=== PATIENT | female | born 1935 | race Caucasian/White ===

== ENCOUNTER 2017-05-07 18:38 | Inpatient (IN) | payer MEDICAID ==
[2017-05-07 19:53] LABS: ABS Basophils 0 10^3/ul (0-0.2); ABS Eosinophils 0 10^3/ul (0-0.6); ABS Lymphocytes 0.8 10^3/ul (1.0-4.8); ABS Monocytes 0.5 10^3/ul (0-0.8); ABS Neutrophils 5.7 10^3/ul (1.5-7.7); ABS Nucleated RBC 0 10^3/ul; Eosinophil % 0.7 % (0-6); Hematocrit 42 % (35-47); Lymphocyte % 11.5 % (25-47); Mean Corpuscular HGB Conc 33 g/dl (31-36); Mean Corpuscular Hemoglobin 29 pg (27-31); Mean Corpuscular Volume 89 fL (80-97); Mean Platelet Volume 8.5 um3 (7.4-10.4); Nucleated Red Blood Cells % 0.1; Platelet Count 158 10^3/ul (150-450); Red Blood Count 4.78 10^6/ul (4.0-5.4); Red Cell Distribution Width 14 % (10.5-15)
[2017-05-07 20:01] LABS: INR 0.91 (0.77-1.02)
[2017-05-07 20:08] LABS: EGFR Non-African American 53.1 (>60)
[2017-05-07] MEDS ORDERED: Iodixanol* (CONTRAST) 320 MG/ML 100 ML SDV IV ONE (20:11)
--- NOTE | 2017-05-07 20:19 | RAD ---
INDICATION: Abdominal pain COMPARISON: Chest x-ray dated December 24, 2016 TECHNIQUE: Single AP portable view of the chest was obtained. FINDINGS: Image quality is compromised due to the relative inferiority of a portable chest x-ray. The heart and mediastinum exhibit normal size and contour. There is mild calcification overlying the arch of the aorta. The lungs are grossly clear. There is no evidence of a large pleural effusion. Degenerative changes of the right shoulder include sclerotic flattening of the humeral head similar to the previous chest x-ray. IMPRESSION: No radiographic evidence for acute cardiopulmonary abnormality on this portable chest x-ray.
--- NOTE | 2017-05-07 20:34 | RAD ---
HISTORY: Abdominal pain COMPARISONS: None TECHNIQUE: Multiple transverse and longitudinal ultrasound images were obtained of the right upper quadrant. FINDINGS: LIVER: The liver is normal in dimensions and echogenicity. Normal hepatic and portal venous blood flow is duplicated with color flow imaging. There is no gross intrahepatic biliary duct dilatation. GALLBLADDER AND EXTRAHEPATIC BILIARY DUCT: The gallbladder wall appears asymmetrically thickened measuring up to 11 mm and greatest width. There are echogenic stones in the gallbladder lumen. The common bile duct measures a maximum diameter of up to 5 mm. PANCREAS: The portions of the pancreas not obscured by bowel gas are normal in appearance. RIGHT KIDNEY: The right kidney appears atrophic with thin cortex measuring 6.9 x 3.2 x 3.3 cm. AORTA AND IVC: The visualized portions are normal in appearance and not pathologically dilated. IMPRESSION: 1. CHOLELITHIASIS AND GALLBLADDER WALL THICKENING UP TO 11 MM COULD BE SEEN IN THE SETTING OF CHOLECYSTITIS. IF CLINICALLY WARRANTED FURTHER PHYSIOLOGIC CHARACTERIZATION OF THE GALLBLADDER CAN BE MADE WITH HIDA SCAN. 2. THE RIGHT KIDNEY APPEARS ATROPHIC. PLEASE CORRELATE TO BASIC METABOLIC PANEL.
[2017-05-07 20:42] LABS: Urine Appearance Clear; Urine Blood 1+ (Negative); Urine Color Straw; Urine Ketones Negative (Negative); Urine Protein Negative (Negative); Urine Specific Gravity 1.004 (1.010-1.030); Urine Urobilinogen Negative (Negative)
[2017-05-07] MEDS ORDERED: Piperacillin/Tazobac ADVAN(*) 3.375 GM in NS 0.9% 100 ML* 100 ML IVPB ONE ×2 (21:14→22:29)
--- NOTE | 2017-05-07 22:04 | RAD ---
CLINICAL HISTORY: Abdominal pain COMPARISON: Same day ultrasound at shows sonographic signs of acute cholecystitis in the presence of gallstones. TECHNIQUE: Contrast enhanced CT examination of the abdomen and pelvis from the lung bases through the initial tuberosities. The patient received 71 mL Visipaque 320 intravenously prior to imaging.The patient received oral contrast as well prior to imaging. FINDINGS: VISUALIZED LUNG BASES: There are mild hypoventilatory changes and groundglass opacification at the bilateral lung bases. ABDOMEN AND PELVIS: The liver, spleen, pancreas and adrenal glands are grossly normal in appearance. There are gallstones in the dependent portion of the gallbladder. There is circumferential thickening of the gallbladder wall measuring up to 7 mm in thickness. There is no definite pericholecystic fluid. The kidneys are normal in appearance without focal mass, calcification or signs of hydronephrosis. Evaluation of the gastrointestinal tract is limited without oral contrast. The small and large bowel are not distended. The appendix is not discretely visualized. There are rectosigmoid diverticula. There is no definite wall thickening, although evaluation of the colon is limited in the absence of oral contrast the lumen. There is no gross retroperitoneal or mesenteric lymphadenopathy. At the right pelvic adnexa there is a large fluid density structure measuring 6.7 cm in greatest axial dimension. The coarsely calcified abdominal aorta and iliac arteries are normal in course and diameter. There is an age indeterminant compression deformity of the T12 vertebral body. Degenerative changes include loss of intervertebral disc height.There are no sinister bone lesions. IMPRESSION: 1. Corresponding to findings on the same day right upper quadrant ultrasound, there are gallstones and thickening of the gallbladder wall to 7 mm in thickness. Please correlate to physical exam findings consistent with acute cholecystitis. 2. Diverticulosis without definite focal inflammatory change. 3. At the right adnexa there is a 6.6 cm fluid density structure that could be either a large ovarian or paraovarian cyst. This is considered abnormal and a postmenopausal woman. Further characterization can be made with pelvic ultrasound on a nonemergent basis. 4. Age indeterminant compression fracture of the T12 vertebral body 5. Additional chronic and degenerative changes described in the body the report.
--- NOTE | 2017-05-07 22:21 | ED ---
Abhishek Lal Julia, scribed for Tiago Panda on 05/07/17 at 1854 . Abdominal Pain/Female - HPI Summary HPI Summary: This patient is a 81 year old F presenting to [facility] accompanied by her daughter acting as solar field service technician with a chief complaint of left sided abdominal pain since around 09:00. Daughter states she has been c/o discomfort recently but no significant pain. Daughter denies recent vomiting. Daughter states she is unaware of eating and bowel habits because of dementia. - History of Current Complaint Chief Complaint: EDAbdPain Stated Complaint: ABD PAIN Time Seen by Provider: 05/07/17 18:43 Hx Obtained From: Patient, Family/Car Electronics Installer, Figure Model Hx From Patient Unobtainable Due To: Dementia Onset/Duration: Lasting Hours Timing: Constant Pain Intensity: 5 Location: Discrete At: LUQ, Discrete At: LLQ Associated Signs and Symptoms: Positive: Other: - unaware due to dementia. Negative: Vomiting Allergies/Adverse Reactions: Allergies Allergy/AdvReac Type Severity Reaction Status Date / Time No Known Allergies Allergy Verified 09/21/15 13:39 Home Medications: Home Medications NK [No Home Medications Reported] 05/07/17 [History Confirmed 05/07/17] PMH/Surg Hx/FS Hx/Imm Hx Endocrine/Hematology History: Denies: Hx Diabetes, Hx Thyroid Disease Cardiovascular History: Denies: Hx Congestive Heart Failure, Hx Deep Vein Thrombosis, Hx Hypertension , Hx Myocardial Infarction, Hx Pacemaker/ICD Respiratory History: Denies: Hx Asthma, Hx Chronic Obstructive Pulmonary Disease (COPD), Hx Lung Cancer, Hx Pneumonia, Hx Pulmonary Embolism GI History: Denies: Hx Gall Bladder Disease, Hx Gastrointestinal Bleed, Hx Ulcer, Hx Urosepsis History: Denies: Hx Kidney Stones, Hx Renal Disease Musculoskeletal History: Reports: Hx Back Problems Sensory History: Denies: Hx Hearing Aid Neurological History: Reports: Hx Dementia Denies: Hx Migraine, Hx Seizures, Hx Transient Ischemic Attacks (TIA) Psychiatric History: Denies: Hx Anxiety, Hx Depression, Hx Panic Disorder, Hx Schizophrenia, Hx Bipolar Disorder - Surgical History Surgery Procedure, Year, and Place: SOFT TISSUE MASS REMOVED FROM HEEL - Immunization History Immunizations Up to Date: Unable to Obtain/Confirm Infectious Disease History: No Infectious Disease History: Denies: Traveled Outside the [place] in Last 30 Days - Family History Known Family History: Positive: Unknown - Pt has dementia - Social History Alcohol Use: None Substance Use Type: Reports: None Smoking Status (MU): Never Smoked Tobacco Review of Systems Positive: Abdominal Pain. Negative: Vomiting All Other Systems Reviewed And Are Negative: Yes - Comments Additional Review of Systems Comments: ROS is limited due to dementia. Physical Exam - Summary Physical Exam Summary: Appearance: Well appearing, no pain distress Skin: warm, dry, reflects adequate perfusion, DMM Head/face: normal Eyes: EOMI, ROLY ENT: normal Neck: supple, non-tender Respiratory: CTA, breath sounds present Cardiovascular: RRR, pulses symmetrical Abdomen: RUQ tenderness, soft Bowel: present Musculoskeletal: normal, strength/ROM intact Neuro: normal, sensory motor intact, alert but confused Triage Information Reviewed: Yes Vital Signs On Initial Exam: Initial Vitals Temp Pulse Resp BP Pulse Ox 98.1 F 62 18 139/80 93 05/07/17 18:41 05/07/17 18:41 05/07/17 18:41 05/07/17 18:41 05/07/17 18:41 Vital Signs Reviewed: Yes Diagnostics - Vital Signs Vital Signs Temp Pulse Resp BP Pulse Ox 05/07/17 18:41 98.1 F 62 18 139/80 93 - Laboratory Lab Results: Lab Results 05/07/17 05/07/17 05/07/17 Range/Units 19:30 19:30 19:30 WBC 7.0 (3.5-10.8) 10^3/ul RBC 4.78 (4.0-5.4) 10^6/ul Hgb 14.0 (12.0-16.0) g/dl Hct 42 (35-47) % MCV 89 (80-97) fL MCH 29 (27-31) pg MCHC 33 (31-36) g/dl RDW 14 (10.5-15) % Plt Count 158 (150-450) 10^3/ul MPV 8.5 (7.4-10.4) um3 Neut % (Auto) 80.1 (38-83) % Lymph % (Auto) 11.5 L (25-47) % [place] % (Auto) 7.3 H (0-7) % Eos % (Auto) 0.7 (0-6) % Baso % (Auto) 0.4 (0-2) % Absolute Neuts (auto) 5.7 (1.5-7.7) 10^3/ul Absolute Lymphs (auto) 0.8 L (1.0-4.8) 10^3/ul Absolute Monos (auto) 0.5 (0-0.8) 10^3/ul Absolute Eos (auto) 0 (0-0.6) 10^3/ul Absolute Basos (auto) 0 (0-0.2) 10^3/ul Absolute Nucleated RBC 0 10^3/ul Nucleated RBC % 0.1 INR (Anticoag Therapy) 0.91 (0.77-1.02) APTT 28.2 (26.0-36.3) seconds Sodium 140 (139-145) mmol/L Potassium 3.9 (3.5-5.0) mmol/L Chloride 104 (101-111) mmol/L Carbon Dioxide 27 (22-32) mmol/L Anion Gap 9 (2-11) mmol/L BUN 15 (6-24) mg/dL Creatinine 1.00 H (0.51-0.95) mg/dL Est GFR ( Amer) 68.3 (>60) Est GFR (Non-Af Amer) 53.1 (>60) BUN/Creatinine Ratio 15.0 (8-20) Glucose 125 H (70-100) mg/dL Lactic Acid (0.5-2.0) mmol/L Calcium 9.7 (8.6-10.3) mg/dL Total Bilirubin 0.80 (0.2-1.0) mg/dL AST 178 H (13-39) U/L ALT 46 (7-52) U/L Alkaline Phosphatase 77 (34-104) U/L Troponin I 0.01 (<0.04) ng/mL C-Reactive Protein < 1.00 (< 5.00) mg/L Total Protein 6.8 (6.4-8.9) g/dL Albumin 4.0 (3.2-5.2) g/dL Globulin 2.8 (2-4) g/dL Albumin/Globulin Ratio 1.4 (1-3) Lipase 639 H (11.0-82.0) U/L Urine Color Urine Appearance Urine pH (5-9) Ur Specific [place] (1.010-1.030) Urine Protein (Negative) Urine Ketones (Negative) Urine Blood (Negative) Urine Nitrate (Negative) Urine Bilirubin (Negative) Urine Urobilinogen (Negative) Ur Leukocyte Esterase (Negative) Urine WBC (Auto) (Absent) Urine RBC (Auto) (Absent) Ur Squamous Epith Cells (Absent) Amorphous Crystals (Absent) Urine Bacteria (Absent) Urine Glucose (Negative) 05/07/17 05/07/17 Range/Units 19:30 19:40 WBC (3.5-10.8) 10^3/ul RBC (4.0-5.4) 10^6/ul Hgb (12.0-16.0) g/dl Hct (35-47) % MCV (80-97) fL MCH (27-31) pg MCHC (31-36) g/dl RDW (10.5-15) % Plt Count (150-450) 10^3/ul MPV (7.4-10.4) um3 Neut % (Auto) (38-83) % Lymph % (Auto) (25-47) % [place] % (Auto) (0-7) % Eos % (Auto) (0-6) % Baso % (Auto) (0-2) % Absolute Neuts (auto) (1.5-7.7) 10^3/ul Absolute Lymphs (auto) (1.0-4.8) 10^3/ul Absolute Monos (auto) (0-0.8) 10^3/ul Absolute Eos (auto) (0-0.6) 10^3/ul Absolute Basos (auto) (0-0.2) 10^3/ul Absolute Nucleated RBC 10^3/ul Nucleated RBC % INR (Anticoag Therapy) (0.77-1.02) APTT (26.0-36.3) seconds Sodium (139-145) mmol/L Potassium (3.5-5.0) mmol/L Chloride (101-111) mmol/L Carbon Dioxide (22-32) mmol/L Anion Gap (2-11) mmol/L BUN (6-24) mg/dL Creatinine (0.51-0.95) mg/dL Est GFR ( Amer) (>60) Est GFR (Non-Af Amer) (>60) BUN/Creatinine Ratio (8-20) Glucose (70-100) mg/dL Lactic Acid 1.8 (0.5-2.0) mmol/L Calcium (8.6-10.3) mg/dL Total Bilirubin (0.2-1.0) mg/dL AST (13-39) U/L ALT (7-52) U/L Alkaline Phosphatase (34-104) U/L Troponin I (<0.04) ng/mL C-Reactive Protein (< 5.00) mg/L Total Protein (6.4-8.9) g/dL Albumin (3.2-5.2) g/dL Globulin (2-4) g/dL Albumin/Globulin Ratio (1-3) Lipase (11.0-82.0) U/L Urine Color Straw Urine Appearance Clear Urine pH 6.0 (5-9) Ur Specific [place] 1.004 L (1.010-1.030) Urine Protein Negative (Negative) Urine Ketones Negative (Negative) Urine Blood 1+ A (Negative) Urine Nitrate Negative (Negative) Urine Bilirubin Negative (Negative) Urine Urobilinogen Negative (Negative) Ur Leukocyte Esterase Negative (Negative) Urine WBC (Auto) Trace(0-5/hpf) (Absent) Urine RBC (Auto) 1+(3-5/hpf) A (Absent) Ur Squamous Epith Cells Present A (Absent) Amorphous Crystals Present A (Absent) Urine Bacteria Absent (Absent) Urine Glucose Negative (Negative) Result Diagrams: 05/07/17 19:30 05/07/17 19:30 Lab Statement: Any lab studies that have been ordered have been reviewed, and results considered in the medical decision making process. - Radiology CXR Radiology Interpretation Completed By: Radiologist - No radiographic evidence for acute cardiopulmonary abnormality on this portable chest x-ray. ED Physician as reviewed this report. - CT A/P CT Interpretation Completed By: Radiologist - 1. Corresponding to findings on the same day right upper quadrant ultrasound, there are gallstones and thickening of the gallbladder wall to 7 mm in thickness. Please correlate to physical exam findings consistent with acute cholecystitis. 2. Diverticulosis without definite focal inflammatory change. 3. At the right adnexa there is a 6.6 cm fluid density structure that could be either a large ovarian or paraovarian cyst. This is considered abnormal and a postmenopausal woman. Further characterization can be made with pelvic ultrasound on a nonemergent basis. 4. Age indeterminant compression fracture of the T12 vertebral body 5. Additional chronic and degenerative changes described in the body the report. ED Physician has reviewed this report. - EKG 1913 Cardiac Rate: NL - at 61 EKG Rhythm: Sinus Rhythm ST Segment: Non-Specific - Additional Comments Diagnostic Additional Comments: A Gallbladder US reveals: 1. CHOLELITHIASIS AND GALLBLADDER WALL THICKENING UP TO 11 MM COULD BE SEEN IN THE SETTING OF CHOLECYSTITIS. IF CLINICALLY WARRANTED FURTHER PHYSIOLOGIC CHARACTERIZATION OF THE GALLBLADDER CAN BE MADE WITH HIDA SCAN. 2. THE RIGHT KIDNEY APPEARS ATROPHIC. PLEASE CORRELATE TO BASIC METABOLIC PANEL. ED Physician has reviewed this report. Re-Evaluation - Re-Evaluation 1 Re-Evaluation Time: 21:20 Comment: Informed pt of results. Pt will be admitted. Abdominal Pain Fem Course/Dx - Course Course Of Treatment: Patient presents with left sided abdominal pain since around 09:00. Daughter states she has been c/o discomfort recently but no significant pain. Daughter denies recent vomiting. Daughter states she is unaware of eating and bowel habits because of dementia. Bloodwork is WNL. Dr. Ball agrees to admit this patient. A A/P CT is obtained, Dr. Ball will review results with pt as report was given at the end of shit/post admission. Dr. Richardson suspects cholecsytitis. - Diagnoses Differential Diagnosis: Positive: Appendicitis, Diverticulitis, Gall Bladder Disease, Pancreatitis, Peptic Ulcer Disease, Renal Colic, Urinary Tract Infection Provider Diagnoses: Cholecystitis, Pancreatitis - Provider Notifications Discussed Care Of Patient With: Humza Richardson - surgeon Time Discussed With Above Provider: 21:10 Instructed by Provider To: Other - Pt likely has cholecystitis. - Critical Care Time Critical Care Time: 30-74 min Discharge - Sign-Out/Discharge Documenting (check all that apply): Discharge - admit - Discharge Plan Condition: Stable Disposition: ADMITTED TO [facility] Referrals: Serafin Katz MD [Primary Care Provider] - - Billing Disposition and Condition Condition: STABLE Disposition: [facility] Consult Consult: At 21:10, Dr. Richardson states he believes the pt has cholecytitis. At 21:15, Dr Ball agrees to admit. The documentation as recorded by the Abhishek younger Julia accurately reflects the service I personally performed and the decisions made by , Tiago Panda.
[2017-05-07] MEDS ORDERED: Ondansetron INJ* 2 MG/ML VIAL IV PRN (22:29)
[2017-05-07] MEDS ORDERED: Acetaminophen TAB* 325 MG PO PRN (22:29)
[2017-05-07] MEDS ORDERED: NS 0.9% 1000 ML* 1,000 ML IV SCH (22:30)
[2017-05-07] MEDS ORDERED: Zosyn per Pharmacy* NOTE FOLLOW UP SCH (23:00)
[2017-05-08] MEDS: Piperacillin/Tazobactam 13.5 GM IV 24 hour continuous infusion IVPB SCH ×2 (02:02)
--- NOTE | 2017-05-08 02:27 | HP ---
CC: Dr. Katz; Dr. Richardson * HISTORY AND PHYSICAL: DATE OF ADMISSION: 05/07/17 PRIMARY CARE PROVIDER: Dr. Katz. ATTENDING PHYSICIAN WHILE IN THE HOSPITAL: Dr. Josiah Ball * (report dictated by Bc Doss NP) CHIEF COMPLAINT: Abdominal pain. HISTORY OF PRESENT ILLNESS: Ms. Rodriguez is an 81-year-old female patient. She really has no past medical history though daughter thinks she may have a history of dementia. Please note the patient is [place] Citizen speaking only and the daughter acts as an livestock handler for me at this point. The patient's daughter says that she was having abdominal discomfort today particularly on the right side described as sudden, sharp onset with association with food. She says that for the last several months, the patient has been having intermittent left- sided pain and the daughter noted that the pain does some time coincide with her after eating food. She says that there have been no reported fevers or nausea or vomiting. There has been no reported chest pain or shortness of breath from the patient to the daughter. The patient described the pain today as a sharp, stabbing pain that just did not go away, was persistent. The daughter was concerned because this discomfort was on the right side and it was not like her previous episodes of pain that she was concerned and she brought her mother into the hospital. Again, there have been no reports of diarrhea. No reports of vomiting, no reports of nausea, and no reports of recent cold symptoms or shortness of breath. She came into the ED, it was noted that she did have some fluid around the gallbladder. Her lipase was elevated and because of this, we were asked for evaluate for admission. PAST MEDICAL HISTORY: Significant for questionable dementia. PAST SURGICAL HISTORY: The patient has had a foot surgery only. HOME MEDICATIONS: Denied. ALLERGIES: Include no known drug allergies. FAMILY HISTORY: Her father's history is unknown. The mother did have a history of cancer. SOCIAL HISTORY: The patient has never been a smoker or drinker. Surrogate decision maker is the patient's daughter. REVIEW OF SYSTEMS: There is no documented fever. There is no significant weight change. There was no double vision. There is no ear discharge. She is not having any rhinorrhea. There is no sore throat. No thyroid enlargement. She denied having any chest pain. There is no orthopnea, there is no nocturnal dyspnea. There was abdominal pain from my HPI. There was no nausea, no vomiting. No dysuria, no frequency. No seizure, no loss of consciousness. No pruritus and no skin ulcerations. Review of 14 systems was completed, all others negative. PHYSICAL EXAMINATION GENERAL: At this time, Ms. Rodriguez is an 81-year-old female patient. She is sitting on the ED stretcher. She does not appear to be in any acute distress. VITAL SIGNS: Blood pressure 139/48, pulse 70, respirations 18, O2 sat 93%, temperature of 98.1. HEENT: Head: Atraumatic, normocephalic. Eyes: EOMs intact. Sclerae anicteric. Throat: Oral mucosa appears to be moist. No oropharyngeal erythema. NECK: Supple. LUNGS: Clear to auscultation. No wheezes, rales, or rhonchi. HEART: Sounds S1, S2. Regular rate and rhythm. No murmurs, rubs, or gallops. ABDOMEN: Soft, flat, nontender. Bowel sounds present. EXTREMITIES: Pulses were 2+ throughout. She is moving all 4 extremities with 5 /5 strength. NEUROLOGICAL: She is awake and she is alert to her name. According to the daughter, she does know she is in the hospital. She is confused of the month. Speech was clear. Tongue was midline. There is no facial drooping. No gross focal deficits. SKIN: Intact. DIAGNOSTIC STUDIES/LAB DATA: WBC 7.0, RBC of 4.78, hemoglobin 14.3, hematocrit of 42, platelet count of 58. INR 0.91, PTT of 28.2. Sodium 140, potassium 3.9, chloride 104, bicarb 27, BUN 15, creatinine of 1, glucose is 125 , lactate 1.8, calcium 9.7. Total bili 0.8; AST was 178, a year ago, was 57; ALT was 46; alk phos 77. Troponin 0.01. CRP less than 1. Lipase was 639. Urine showed 1+ rbc's, 1+blood. She had multiple imaging in the ED. She had a chest x-ray which showed no radiographic evidence for acute cardiopulmonary abnormalities. There was an abdomen pelvis CT obtained today, which showed corresponding finding on the same day of right upper quadrant ultrasound. There are gallstones and thickening of the gallbladder to 7-mm thickness. Please correlate to physical exam consistent with acute cholecystitis, diverticulosis without definite inflammatory change. At the right ovary, there was a 6.6 fluid density structure that could either be a large ovarian cyst or paraovarian cyst. This was considered abnormal in a postmenopausal woman. Further characterization can be made with pelvic ultrasound. Age undetermined compression fracture at T12, additional chronic degenerative changes in the body of report. The patient did have a gallbladder ultrasound obtained today, which revealed cholelithiasis and gallbladder wall thickening up to 11 mm, could be seen in the setting of acute cholecystitis, clinically warranted. Further physiologic characteristic of the gallbladder can be made with the HIDA scan. Right kidney appears to be atrophic. Please correlate with basic metabolic panel. The patient did have an EKG today which did show normal sinus rhythm, rate of 66 , no ST elevation or T wave inversions were noted. Old medical records were reviewed. ASSESSMENT AND PLAN: Ms. Rodriguez is an 81-year-old female patient with a history of questionable dementia, coming into the ED today with complaints of abdominal discomfort, now resolved and on evaluation was found to have a mildly elevated lipase, elevated liver function tests, now CT imaging found to have gallbladder wall thickening along with cholelithiasis. We were asked to evaluate for admission. She will be admitted under observation status for: 1. Abdominal pain. I suspect this is biliary colic. The patient certainly could have had a stone that was obstructed and it is free. I do think that we should trend her labs, make the patient n.p.o. I would continue antibiotics because of the pericholecystic fluid. I did touch base with Surgery. We ordered a consult with Surgery. We ordered antibiotics. HIDA tomorrow morning. She will be n.p.o. with IV fluids going. In addition to this, we will check LFTs in the morning and her lipase. 2. Dementia. Continue with supportive care. 3. DVT prophylaxis. I will place the patient on heparin subcu. 4. Code status. Full code. 5. Fluids, electrolytes, nutrition. She will be n.p.o. with normal saline at 75 an hour. TIME SPENT: On admission was 60 minutes, greater than half the time was spent face- to-face with the patient obtaining my history and physical; other half time was spent going over the plan of care with the patient and implementing plan of care. I did discuss the plan of care with my attending, Dr. Ball; he is in agreement. BC DOSS NP [id number]/CPS #: [id number] LIZZIE
[2017-05-08] MEDS: Heparin VIAL(*) 5000 UNITS/ML VIAL (FIVE THOUSAND) SUBCUT SCH ×3 (05:22→21:47)
[2017-05-08 06:44] LABS: ABS Basophils 0 10^3/ul (0-0.2); ABS Eosinophils 0 10^3/ul (0-0.6); ABS Lymphocytes 0.8 10^3/ul (1.0-4.8); ABS Monocytes 0.3 10^3/ul (0-0.8); ABS Neutrophils 1.5 10^3/ul (1.5-7.7); ABS Nucleated RBC 0 10^3/ul; Eosinophil % 0.7 % (0-6); Hematocrit 40 % (35-47); Hemoglobin 13.2 g/dl (12.0-16.0); Lymphocyte % 29.1 % (25-47); Mean Corpuscular HGB Conc 33 g/dl (31-36); Mean Corpuscular Hemoglobin 29 pg (27-31); Mean Corpuscular Volume 88 fL (80-97); Mean Platelet Volume 8.3 um3 (7.4-10.4); Nucleated Red Blood Cells % 0.1; Platelet Count 153 10^3/ul (150-450); Red Blood Count 4.52 10^6/ul (4.0-5.4); Red Cell Distribution Width 14 % (10.5-15); White Blood Count 2.6 10^3/ul (3.5-10.8)
[2017-05-08 06:49] LABS: INR 0.96 (0.77-1.02)
[2017-05-08 06:58] LABS: EGFR Non-African American 48.6 (>60)
--- NOTE | 2017-05-08 10:31 | RAD ---
Indication: Abdominal pain, cholelithiasis. Pancreatitis. Comparison: May 07, 2017 CT and ultrasound. Technique: 6.300 mCi of Tc-99m Choletec was injected IV. Serial anterior images of the abdomen were obtained immediately following radiopharmaceutical administration to 60 minutes. Delayed anterior scintiphoto obtained at 80 minutes. Report: There is normal hepatic uptake and excretion of the radiopharmaceutical with the gallbladder being visualized at approximately 80 minutes following injection. Bowel activity visualized at approximately 25 minutes. IMPRESSION: Patent cystic and common bile ducts documented.
--- NOTE | 2017-05-08 15:13 | PN ---
Progress Note - Progress Note Date of Service: 05/08/17 Note: Surgery Ms. Rodriguez seen with her daughter who translates and does most of the communicating. She had a number of questions about the significance of a normal HIDA scan and elevation of lipase. She says Ms. Rodriguez wants to eat and go home. But the daughter recalls that the pt. has intermittently held her left side in pain after eating. She wonders if that indicates pancreatitis or other problem. Vital Signs 05/07/17 05/07/17 05/07/17 18:41 19:45 20:00 Temperature 98.1 F Pulse Rate 62 73 62 Respiratory 18 Rate Blood Pressure 139/80 139/65 107/64 (mmHg) O2 Sat by Pulse 93 96 96 Oximetry 05/07/17 05/07/17 05/07/17 21:00 21:21 21:28 Temperature Pulse Rate 68 72 Respiratory Rate Blood Pressure 144/59 (mmHg) O2 Sat by Pulse 95 94 Oximetry 05/07/17 05/07/17 05/07/17 21:30 21:43 22:00 Temperature Pulse Rate 67 70 Respiratory Rate Blood Pressure 155/64 139/48 (mmHg) O2 Sat by Pulse 96 93 Oximetry 05/07/17 05/07/17 05/08/17 23:32 23:36 00:02 Temperature 97.6 F 97.3 F Pulse Rate 80 78 70 Respiratory 18 16 Rate Blood Pressure 150/52 150/52 151/72 (mmHg) O2 Sat by Pulse 83 93 97 Oximetry 05/08/17 05/08/17 05/08/17 02:50 08:00 08:17 Temperature 100.6 F 98.6 F Pulse Rate 75 64 Respiratory 18 18 18 Rate Blood Pressure 140/56 94/55 (mmHg) O2 Sat by Pulse 95 Oximetry 05/08/17 12:43 Temperature Pulse Rate 62 Respiratory Rate Blood Pressure 125/48 (mmHg) O2 Sat by Pulse 94 Oximetry Abd: good BS, soft, non-tender, even in RUQ. Intake & Output 05/08/17 05/08/17 05/08/17 06:59 14:59 22:59 Intake Total 661 Balance 661 Weight 116 lb 6.4 oz Intake: IV Fluids 544 NS (0.9%) 544 IVPB 117 ABX - PIPERACILLIN 117 Oral 0 Other: # Bowel Movements 0 # Voids 2 Laboratory Results - last 24 hr 05/07/17 05/07/17 05/07/17 19:30 19:30 19:30 WBC 7.0 RBC 4.78 Hgb 14.0 Hct 42 MCV 89 MCH 29 MCHC 33 RDW 14 Plt Count 158 MPV 8.5 Neut % (Auto) 80.1 Lymph % (Auto) 11.5 L [place] % (Auto) 7.3 H Eos % (Auto) 0.7 Baso % (Auto) 0.4 Absolute Neuts (auto) 5.7 Absolute Lymphs (auto) 0.8 L Absolute Monos (auto) 0.5 Absolute Eos (auto) 0 Absolute Basos (auto) 0 Absolute Nucleated RBC 0 Nucleated RBC % 0.1 INR (Anticoag Therapy) 0.91 APTT 28.2 Sodium 140 Potassium 3.9 Chloride 104 Carbon Dioxide 27 Anion Gap 9 BUN 15 Creatinine 1.00 H Est GFR ( Amer) 68.3 Est GFR (Non-Af Amer) 53.1 BUN/Creatinine Ratio 15.0 Glucose 125 H Lactic Acid Calcium 9.7 Total Bilirubin 0.80 Direct Bilirubin Indirect Bilirubin AST 178 H ALT 46 Alkaline Phosphatase 77 Troponin I 0.01 C-Reactive Protein < 1.00 Total Protein 6.8 Albumin 4.0 Globulin 2.8 Albumin/Globulin Ratio 1.4 Lipase 639 H Urine Color Urine Appearance Urine pH Ur Specific [place] Urine Protein Urine Ketones Urine Blood Urine Nitrate Urine Bilirubin Urine Urobilinogen Ur Leukocyte Esterase Urine WBC (Auto) Urine RBC (Auto) Ur Squamous Epith Cells Amorphous Crystals Urine Bacteria Urine Glucose 05/07/17 05/07/17 05/08/17 19:30 19:40 01:00 WBC RBC Hgb Hct MCV MCH MCHC RDW Plt Count MPV Neut % (Auto) Lymph % (Auto) [place] % (Auto) Eos % (Auto) Baso % (Auto) Absolute Neuts (auto) Absolute Lymphs (auto) Absolute Monos (auto) Absolute Eos (auto) Absolute Basos (auto) Absolute Nucleated RBC Nucleated RBC % INR (Anticoag Therapy) APTT Sodium Potassium Chloride Carbon Dioxide Anion Gap BUN Creatinine Est GFR ( Amer) Est GFR (Non-Af Amer) BUN/Creatinine Ratio Glucose Lactic Acid 1.8 2.4 H* Calcium Total Bilirubin Direct Bilirubin Indirect Bilirubin AST ALT Alkaline Phosphatase Troponin I C-Reactive Protein Total Protein Albumin Globulin Albumin/Globulin Ratio Lipase Urine Color Straw Urine Appearance Clear Urine pH 6.0 Ur Specific [place] 1.004 L Urine Protein Negative Urine Ketones Negative Urine Blood 1+ A Urine Nitrate Negative Urine Bilirubin Negative Urine Urobilinogen Negative Ur Leukocyte Esterase Negative Urine WBC (Auto) Trace(0-5/hpf) Urine RBC (Auto) 1+(3-5/hpf) A Ur Squamous Epith Cells Present A Amorphous Crystals Present A Urine Bacteria Absent Urine Glucose Negative 05/08/17 05/08/17 05/08/17 06:30 06:30 06:30 WBC 2.6 L RBC 4.52 Hgb 13.2 Hct 40 MCV 88 MCH 29 MCHC 33 RDW 14 Plt Count 153 MPV 8.3 Neut % (Auto) 57.2 Lymph % (Auto) 29.1 [place] % (Auto) 12.0 H Eos % (Auto) 0.7 Baso % (Auto) 1.0 Absolute Neuts (auto) 1.5 Absolute Lymphs (auto) 0.8 L Absolute Monos (auto) 0.3 Absolute Eos (auto) 0 Absolute Basos (auto) 0 Absolute Nucleated RBC 0 Nucleated RBC % 0.1 INR (Anticoag Therapy) 0.96 APTT Sodium 142 Potassium 4.0 Chloride 108 Carbon Dioxide 24 Anion Gap 10 BUN 14 Creatinine 1.08 H Est GFR ( Amer) 62.5 Est GFR (Non-Af Amer) 48.6 BUN/Creatinine Ratio 13.0 Glucose 118 H Lactic Acid Calcium 8.9 Total Bilirubin 1.30 H Direct Bilirubin 0.40 H Indirect Bilirubin 0.9 AST 1241 H ALT 487 H Alkaline Phosphatase 108 H Troponin I C-Reactive Protein Total Protein 6.0 L Albumin 3.5 Globulin 2.5 Albumin/Globulin Ratio 1.4 Lipase 167 H Urine Color Urine Appearance Urine pH Ur Specific [place] Urine Protein Urine Ketones Urine Blood Urine Nitrate Urine Bilirubin Urine Urobilinogen Ur Leukocyte Esterase Urine WBC (Auto) Urine RBC (Auto) Ur Squamous Epith Cells Amorphous Crystals Urine Bacteria Urine Glucose 05/08/17 06:30 WBC RBC Hgb Hct MCV MCH MCHC RDW Plt Count MPV Neut % (Auto) Lymph % (Auto) [place] % (Auto) Eos % (Auto) Baso % (Auto) Absolute Neuts (auto) Absolute Lymphs (auto) Absolute Monos (auto) Absolute Eos (auto) Absolute Basos (auto) Absolute Nucleated RBC Nucleated RBC % INR (Anticoag Therapy) APTT Sodium Potassium Chloride Carbon Dioxide Anion Gap BUN Creatinine Est GFR ( Amer) Est GFR (Non-Af Amer) BUN/Creatinine Ratio Glucose Lactic Acid 1.7 Calcium Total Bilirubin Direct Bilirubin Indirect Bilirubin AST ALT Alkaline Phosphatase Troponin I C-Reactive Protein Total Protein Albumin Globulin Albumin/Globulin Ratio Lipase Urine Color Urine Appearance Urine pH Ur Specific [place] Urine Protein Urine Ketones Urine Blood Urine Nitrate Urine Bilirubin Urine Urobilinogen Ur Leukocyte Esterase Urine WBC (Auto) Urine RBC (Auto) Ur Squamous Epith Cells Amorphous Crystals Urine Bacteria Urine Glucose A/P: Clinically improving compared to reports of earlier exam; but with LFTs being somewhat elevated, would advise continued NPO till more normalized. I explained to the daughter that if her mother worsens we will likely recommend some kind of intervention, but that it would be up to her whether or not to accept intervention. GOYOForaoul
--- NOTE | 2017-05-08 22:33 | PN ---
Subjective Date of Service: 05/08/17 Interval History: Tmax 100.6 Italian speaking only, sports psychologist phone used, the Daughter Elvia Transaminases spiked, lipase improved abdominal pain free HIDA w/o obstruction Objective Active Medications: Acetaminophen (Tylenol Tab*) 650 mg PO Q4H PRN PRN Reason: FEVER/PAIN Heparin Sodium (Porcine) (Heparin Vial(*)) 5,000 units SUBCUT Q8HR [facility] Last Admin: 05/08/17 21:47 Dose: Not Given Piperacillin Sod/Tazobactam (Sod 13.5 gm/ Sodium Chloride) 500 mls @ 20.833 mls /hr IVPB Q24H [facility] Last Admin: 05/08/17 02:02 Dose: 20.833 mls/hr Ondansetron HCl (Zofran Inj*) 4 mg IV Q6H PRN PRN Reason: NAUSEA Pharmacy Consult (Zosyn Per Pharmacy*) 1 note FOLLOW UP .ZOSYN PER PHARMACY [facility] Vital Signs - 8 hr 05/08/17 14:38 Temperature 98.5 F Pulse Rate 66 Respiratory 17 Rate Blood Pressure 105/73 (mmHg) O2 Sat by Pulse 93 Oximetry Oxygen Devices in Use Now: None Appearance: NAD Eyes: No Scleral Icterus, PERRLA Ears/Nose/Mouth/Throat: NL Teeth, Lips, Gums Respiratory: Symmetrical Chest Expansion and Respiratory Effort, Clear to Auscultation Cardiovascular: NL Sounds; No Murmurs; No JVD, RRR Abdominal: NL Sounds; No Tenderness; No Distention, No Hepatosplenomegaly Extremities: No Edema Skin: No Rash or Ulcers Neurological: - - convesant in Italian. oriented to situation. Nutrition: Taking PO's Result Diagrams: 05/08/17 06:30 05/08/17 06:30 Additional Lab and Data: Laboratory Results - last 24 hr 05/08/17 05/08/17 05/08/17 01:00 06:30 06:30 WBC 2.6 L RBC 4.52 Hgb 13.2 Hct 40 MCV 88 MCH 29 MCHC 33 RDW 14 Plt Count 153 MPV 8.3 Neut % (Auto) 57.2 Lymph % (Auto) 29.1 [place] % (Auto) 12.0 H Eos % (Auto) 0.7 Baso % (Auto) 1.0 Absolute Neuts (auto) 1.5 Absolute Lymphs (auto) 0.8 L Absolute Monos (auto) 0.3 Absolute Eos (auto) 0 Absolute Basos (auto) 0 Absolute Nucleated RBC 0 Nucleated RBC % 0.1 INR (Anticoag Therapy) 0.96 Sodium Potassium Chloride Carbon Dioxide Anion Gap BUN Creatinine Est GFR ( Amer) Est GFR (Non-Af Amer) BUN/Creatinine Ratio Glucose Lactic Acid 2.4 H* Calcium Total Bilirubin Direct Bilirubin Indirect Bilirubin AST ALT Alkaline Phosphatase Total Protein Albumin Globulin Albumin/Globulin Ratio Lipase 05/08/17 05/08/17 06:30 06:30 WBC RBC Hgb Hct MCV MCH MCHC RDW Plt Count MPV Neut % (Auto) Lymph % (Auto) [place] % (Auto) Eos % (Auto) Baso % (Auto) Absolute Neuts (auto) Absolute Lymphs (auto) Absolute Monos (auto) Absolute Eos (auto) Absolute Basos (auto) Absolute Nucleated RBC Nucleated RBC % INR (Anticoag Therapy) Sodium 142 Potassium 4.0 Chloride 108 Carbon Dioxide 24 Anion Gap 10 BUN 14 Creatinine 1.08 H Est GFR ( Amer) 62.5 Est GFR (Non-Af Amer) 48.6 BUN/Creatinine Ratio 13.0 Glucose 118 H Lactic Acid 1.7 Calcium 8.9 Total Bilirubin 1.30 H Direct Bilirubin 0.40 H Indirect Bilirubin 0.9 AST 1241 H ALT 487 H Alkaline Phosphatase 108 H Total Protein 6.0 L Albumin 3.5 Globulin 2.5 Albumin/Globulin Ratio 1.4 Lipase 167 H Microbiology and Other Data: Microbiology 05/07/17 19:30 Blood Venous Aerobic Blood Culture - Preliminary No Growth Day 1 05/07/17 19:30 Blood Venous Anaerobic Blood Culture - Preliminary No Growth Day 1 05/07/17 19:30 Blood Venous Aerobic Blood Culture - Preliminary No Growth Day 1 05/07/17 19:30 Blood Venous Anaerobic Blood Culture - Preliminary No Growth Day 1 Assess/Plan/Problems-Billing Assessment: 81 yo Italian only speaking female PMH ?dementia on no medications p/w diffuse abdominal pain, elevated lipase, cholelithasis. febrile 100.6. GB wall thickening on CT and US. HIDA with patent cystic and CBD. HD#2 pain resolved, lipase improved, transaminites spiked. #Cholelithasis, Pancreatitis causing resolved abdominal pain. - concern for passed gall stone - CBC, BMP, LFT daily - appreciate surgery recs - npo w/ IVF tonight, ADAT tomorrow if LFTS improving - resolved lactic acidosis - CT with 6.6 cm fluid in right adnexa - resolved abdominal pain - continue zosyn - f/u BCx CODE: Full dispo: medicine inpatient.
[2017-05-09] MEDS: Piperacillin/Tazobactam 13.5 GM IV 24 hour continuous infusion IVPB SCH ×2 (01:21)
[2017-05-09] MEDS: Heparin VIAL(*) 5000 UNITS/ML VIAL (FIVE THOUSAND) SUBCUT SCH ×2 (06:20→14:20)
[2017-05-09 06:35] LABS: ABS Basophils 0 10^3/ul (0-0.2); ABS Eosinophils 0 10^3/ul (0-0.6); ABS Lymphocytes 0.8 10^3/ul (1.0-4.8); ABS Monocytes 0.3 10^3/ul (0-0.8); ABS Neutrophils 1.6 10^3/ul (1.5-7.7); ABS Nucleated RBC 0 10^3/ul; Eosinophil % 1.6 % (0-6); Hematocrit 41 % (35-47); Hemoglobin 13.9 g/dl (12.0-16.0); Lymphocyte % 29.7 % (25-47); Mean Corpuscular HGB Conc 34 g/dl (31-36); Mean Corpuscular Hemoglobin 30 pg (27-31); Mean Corpuscular Volume 88 fL (80-97); Mean Platelet Volume 8.8 um3 (7.4-10.4); Nucleated Red Blood Cells % 0.2; Platelet Count 149 10^3/ul (150-450); Red Blood Count 4.67 10^6/ul (4.0-5.4); Red Cell Distribution Width 15 % (10.5-15); White Blood Count 2.8 10^3/ul (3.5-10.8)
[2017-05-09 06:54] LABS: EGFR Non-African American 46.1 (>60)
[2017-05-09 16:08] VITALS: BP 133/58
--- NOTE | 2017-05-10 15:38 | DS ---
DISCHARGE SUMMARY: DATE OF ADMISSION: 05/07/17 DATE OF DISCHARGE: 05/09/17 ADMITTING PROVIDER: Alan Doss NP. PRIMARY CARE PROVIDER: Dr. Katz. ATTENDING PHYSICIAN: Nick Phipps MD. CONSULTING SURGEON: Kristi Canales MD CHIEF COMPLAINT: Abdominal pain. PRINCIPAL DIAGNOSES: 1. Pancreatitis; transaminitis, cholelithiasis, concern for possible past gallstone. 2. Systemic inflammatory response syndrome/sepsis. HISTORY OF PRESENT ILLNESS AND HOSPITAL COURSE: Maura Rodriguez is an 81- year-old, Citizen Of [place]-only speaking female with past medical history of progressive dementia, not otherwise on any medications. She presented with right-sided sharp, sudden abdominal pain associated with food. She had intermittent left- sided pain that also sometimes coincides after eating food. Please see [facility] for full details. No reports of fever, nausea or vomiting. The patient had a CT of the abdomen and pelvis, which showed gallstones, thickening of the gallbladder to 7 mm thickness. There was also a 6.6 cm fluid density structure in the right ovary, which could possibly be a large ovarian cyst and was recommended to be followed up with a pelvic ultrasound as an outpatient. The patient also had a right upper quadrant ultrasound, which showed also cholelithiasis, gallbladder wall thickening up to 11 mm. She also had elevated lipase of 639. She was admitted for pancreatitis and concern for cholelithiasis and possible gallbladder pathology of her abdominal pain. She had a HIDA scan on hospital day #2, which showed common bile ducts. She was followed by General Surgery, Dr. Kristi Canales. She notably had an acute elevation in her transaminitis, this is on hospital day #2. Her AST initially was 178 and increased to 1241 and then improved to 377 on day of discharge. Her ALT was initially 46 and increased to 487, decreased to 316 on day of discharge. Alkaline phosphatase was 77 to 108 to 118. Total bilirubin was 0.8 to 1.3 to 1.9 that was predominantly indirect 1.4. She did not have any abdominal pain. By hospital day #2, she was given IV fluids and IV Zosyn. She has been discharged on 5 more days of Augmentin. She should also follow up with Dr. Kristi Canales or another general surgeon for consideration of laparoscopic cholecystectomy if her biliary colic like symptoms return. Of note , she was very demented versus delirious at times in the hospital and the patient's daughter Elvia who is her medical surrogate, was eager for her to return to her home environment as quickly as possible. She did have temperature of 100.6 on belling machine operator of hospital day #2. She had blood cultures that were negative x1 day and the urine culture, which had no clinically significant growth. She had a lactic acid peak of 2.4 thereby meeting SIRS criteria, lactic acidosis and fever suspected source biliary system. MEDICATIONS ON DISCHARGE: Include Augmentin 875 mg p.o. b.i.d. for 5 days. DISCHARGE DIET: Low fat. ACTIVITY LEVEL: No restrictions. FOLLOWUP: Please follow up with Dr. Kristi Canales within [address] Serafin Katz within 5 days of discharge. TIME SPENT ON DISCHARGE: 35 minutes. [id number]/CPS #: [id number] MTDD
== END 2017-05-09 19:30 | disposition home or self-care (01) ==
LOC: ED 18:38 → MED 22:21
PROVIDERS: ADMIT Hospitalist; ATTEND Internal Medicine
DX: K80.20 Calculus of gallbladder without cholecystitis without obstruction (principal); K85.90 Acute pancreatitis without necrosis or infection, unspecified; R74.0 Nonspecific elevation of levels of transaminase and lactic acid dehydrogenase [LDH]; F03.90 Unspecified dementia, unspecified severity, without behavioral disturbance, psychotic disturbance, mood disturbance, and anxiety; N83.201 Unspecified ovarian cyst, right side; Z80.9 Family history of malignant neoplasm, unspecified
CPT/HCPCS: 36415; 71045; 74177; 76705; 78226; 80048; 80053; 80076; 81003; 81015; 83605; 83690; 84484; 85025; 85610; 85730; 86140; 87040; 87086; 93005; 99284; A9270-GY; A9537; J1644; J2543; Q9967

== ENCOUNTER 2018-09-01 14:24 | Emergency (ER) | payer MEDICAID, OTHER ==
--- OUTSIDE RECORDS SUMMARY | 2018-09-01 14:31 | XMS REPORT | Continuity of Care Document ---
:1935 External Reference #:[id number] Author Name Gaye Yuen Care Team Providers Name Role Phone Serafin Katz III, MD Primary Care Physician Unavailable Payers Date Identification Numbers Payment Provider Subscriber Policy Number: [id number] Medicaid Ezequiel Bashir PayID: [id number] [address] [place] [address] Problems Active Problems Provider Date Difficulty breathing Jen Varela MD Onset: 10/31/2015 Family History Date Family Member(s) Observation Comments General Heart Disease General Cancer Father Paternal side heart issues Mother Maternal side heart issues Social History Type Date Description Comments Sex Unknown Marital Status Lives With Daughter Occupation Not working ETOH Use Denies alcohol use Tobacco Use Start: Unknown Patient has never smoked Recreational Drug Use Denies Drug Use Smoking Status Reviewed: 08/31/18 Patient has never smoked Exercise Type/Frequency Does not exercise Allergies, Adverse Reactions, Alerts Description No Known Drug Allergies Medications Active Medications SIG Qnty Indications Ordering Date Provider 4 Wheeled Walker With mamie Jovel 11/08/2016 Seat Blossom Katz apply 4 grams of 100gm M54.5 Alex Beckman NP 06/23/2015 1% Gel gel twice daily to the affected areas Acetaminophen 1 tablets by Unknown 325mg mouth every 6 Tablets hours as needed for pain/fever History Medications No Active Medications Unknown 06/23/2015 - 06/23/2015 Salsalate 1-2 every 8 60tabs M54.5 Alex Beckman NP 06/23/2015 - 500mg Tablets hours as needed 08/18/2015 with food Amoxicillin/Clavulana 1 by mouth twice Unknown - te Potassium a day 10/14/2017 875-125mg Tablets Vital Signs Date Vital Result Comment 08/31/2018 4:44pm Height 49 inches 4'1" Weight 123.00 lb BP Systolic Sitting 124 mmHg BP Diastolic Sitting 82 mmHg BMI (Body Mass Index) 36.0 kg/m2 04/21/2018 2:56pm Height 49 inches 4'1" Weight 123.00 lb Heart Rate 73 /min BP Systolic Sitting 120 mmHg BP Diastolic Sitting 60 mmHg Body Temperature 99.0 F O2 % BldC Oximetry 93 % BMI (Body Mass Index) 36.0 kg/m2 10/14/2017 4:30pm Height 49 inches 4'1" Weight 118.00 lb Heart Rate 115 /min BP Systolic Sitting 120 mmHg BP Diastolic Sitting 78 mmHg O2 % BldC Oximetry 96 % BMI (Body Mass Index) 34.5 kg/m2 05/13/2017 3:34pm Weight 120.00 lb Heart Rate 71 /min BP Systolic Sitting 136 mmHg BP Diastolic Sitting 78 mmHg Body Temperature 98.7 F O2 % BldC Oximetry 96 % 12/24/2016 10:27am Height 49 inches 4'1" Weight 119.00 lb Heart Rate 70 /min BP Systolic Sitting 106 mmHg BP Diastolic Sitting 68 mmHg Body Temperature 98.2 F O2 % BldC Oximetry 96 % BMI (Body Mass Index) 34.8 kg/m2 10/02/2016 1:02pm Weight 113.25 lb Heart Rate 67 /min BP Systolic 110 mmHg BP Diastolic 70 mmHg Body Temperature 98.0 F O2 % BldC Oximetry 98 % 06/12/2016 1:17pm Height 49 inches 4'1" Weight 115.00 lb Heart Rate 72 /min BP Systolic Sitting 118 mmHg BP Diastolic Sitting 64 mmHg Respiratory Rate 14 /min O2 % BldC Oximetry 97 % BMI (Body Mass Index) 33.7 kg/m2 10/31/2015 2:53pm Height 49 inches 4'1" Weight 106.25 lb Heart Rate 73 /min Respiratory Rate 14 /min O2 % BldC Oximetry 97 % BMI (Body Mass Index) 31.1 kg/m2 Neck Circumference in inches 12 08/18/2015 11:32am Weight 105.00 lb Heart Rate 59 /min BP Systolic Sitting 116 mmHg BP Diastolic Sitting 70 mmHg Body Temperature 97.9 F O2 % BldC Oximetry 98 % 06/23/2015 2:50pm Height 58.25 inches 4'10.25" Weight 108.00 lb Heart Rate 66 /min BP Systolic Sitting 103 mmHg BP Diastolic Sitting 63 mmHg Body Temperature 97.6 F Pain Level 3 O2 % BldC Oximetry 97 % BMI (Body Mass Index) 22.4 kg/m2 Results Test Date Facility Test Result H/L Range Note Urine Culture And 05/13/2017 [facility] Urine Culture SEE RESULT [address] [place] [address] [phone] CBC Auto Diff 05/13/2017 [facility] White Blood 5.7 10^3/uL N 3.5-10.[address] [place] [address] [phone] Red Blood Count 4.67 10^6/uL N 4.0-5.4 Hemoglobin 14.0 g/dL N 12.0-16.0 Hematocrit 42 % N 35-47 Mean Corpuscular Volume 89 fL N 80-97 Mean Corpuscular Hemoglobin 30 pg N 27-31 Mean Corpuscular HGB Conc 34 g/dL N 31-36 Red Cell Distribution Width 15 % N 10.5-15 Platelet Count 200 10^3/uL N 150-450 Mean Platelet Volume 8.9 um3 N 7.4-10.4 Abs Neutrophils 3.7 10^3/uL N 1.5-7.7 Abs Lymphocytes 1.2 10^3/uL N 1.0-4.8 Abs Monocytes 0.7 10^3/uL N 0-0.8 Abs Eosinophils 0.1 10^3/uL N 0-0.6 Abs Basophils 0 10^3/uL N 0-0.2 Abs Nucleated RBC 0 10^3/uL Granulocyte % 64.7 % N 38-83 Lymphocyte % 21.1 % Low 25-47 Monocyte % 11.9 % High 0-7 Eosinophil % 1.7 % N 0-6 Basophil % 0.6 % N 0-2 Nucleated Red Blood Cells % 0.1 Comp Metabolic Panel 05/13/2017 [facility] Sodium 143 mmol/L N 139-[address] [place] [address] [phone] Potassium 4.1 mmol/L N 3.5-5.0 Chloride 106 mmol/L N 101-111 Co2 Carbon Dioxide 29 mmol/L N 22-32 Anion Gap 8 mmol/L N 2-11 Glucose 104 mg/dL High 70-100 Blood Urea Nitrogen 13 mg/dL N 6-24 Creatinine 0.98 mg/dL High 0.51-0.95 BUN/Creatinine Ratio 13.3 N 8-20 Calcium 9.6 mg/dL N 8.6-10.3 Total Protein 6.8 g/dL N 6.4-8.9 Albumin 4.2 g/dL N 3.2-5.2 Globulin 2.6 g/dL N 2-4 Albumin/Globulin Ratio 1.6 N 1-3 Total Bilirubin 0.50 mg/dL N 0.2-1.0 Alkaline Phosphatase 85 U/L N 34-104 Alt 68 U/L High 7-52 Ast 36 U/L N 13-39 Egfr Non- 54.3 >60 Egfr 69.9 >60 2 Urinalysis Profile 05/13/2017 [facility] Urine Color Straw [address] [place] [address] [phone] Urine Appearance Clear Urine Specific [place] 1.004 Low 1.010-1.030 Urine pH 5.0 N 5-9 Urine Urobilinogen Negative Negative Urine Ketones Negative Negative Urine Protein Negative Negative Urine Leukocytes 1+ Abnormal Negative Urine Blood 1+ Abnormal Negative Urine Nitrite Negative Negative Urine Bilirubin Negative Negative Urine Glucose Negative Negative Urine White Blood Cell Trace(0-5/hpf) Absent Urine Red Blood Cell Trace(0-2/hpf) Absent Urine Bacteria 1+ Abnormal Absent Urine Squamous Epithelial Cell Present Abnormal Absent Laboratory test 05/13/2017 [facility] Lipase 72 U/L N 11.0- 82.0 finding [address] [place] [address] [phone] Laboratory test 05/07/2017 [facility] C Reactive < 1.00 N < 5.00 3 finding 101 [facility] Protein mg/[place] [address] [phone] Lipase 639 U/L High 11.0-82.0 Troponin-I (TnI) 0.01 ng/mL <0.04 Comp Metabolic Panel 05/07/2017 [facility] Sodium 140 mmol/L N 139-145 [address] [place] [address] [phone] Potassium 3.9 mmol/L N 3.5-5.0 Chloride 104 mmol/L N 101-111 Co2 Carbon Dioxide 27 mmol/L N 22-32 Anion Gap 9 mmol/L N 2-11 Glucose 125 mg/dL High 70-100 Blood Urea Nitrogen 15 mg/dL N 6-24 Creatinine 1.00 mg/dL High 0.51-0.95 BUN/Creatinine Ratio 15.0 N 8-20 Calcium 9.7 mg/dL N 8.6-10.3 Total Protein 6.8 g/dL N 6.4-8.9 Albumin 4.0 g/dL N 3.2-5.2 Globulin 2.8 g/dL N 2-4 Albumin/Globulin Ratio 1.4 N 1-3 Total Bilirubin 0.80 mg/dL N 0.2-1.0 Alkaline Phosphatase 77 U/L N 34-104 Alt 46 U/L N 7-52 Ast 178 U/L High 13-39 Egfr Non- 53.1 >60 Egfr 68.3 >60 4 Laboratory test 05/07/2017 [facility] Partial 28.2 seconds N 26.0-36.[address] [place] [address] PTT [phone] Inr/Protime 05/07/2017 [facility] Inr 0.91 N 0.77-1.[address] [place] [address] [phone] CBC Auto Diff 05/07/2017 [facility] White Blood 7.0 10^3/uL N 3.5-10.[address] [place] [address] [phone] Red Blood Count 4.78 10^6/uL N 4.0-5.4 Hemoglobin 14.0 g/dL N 12.0-16.0 Hematocrit 42 % N 35-47 Mean Corpuscular Volume 89 fL N 80-97 Mean Corpuscular Hemoglobin 29 pg N 27-31 Mean Corpuscular HGB Conc 33 g/dL N 31-36 Red Cell Distribution Width 14 % N 10.5-15 Platelet Count 158 10^3/uL N 150-450 Mean Platelet Volume 8.5 um3 N 7.4-10.4 Abs Neutrophils 5.7 10^3/uL N 1.5-7.7 Abs Lymphocytes 0.8 10^3/uL Low 1.0-4.8 Abs Monocytes 0.5 10^3/uL N 0-0.8 Abs Eosinophils 0 10^3/uL N 0-0.6 Abs Basophils 0 10^3/uL N 0-0.2 Abs Nucleated RBC 0 10^3/uL Granulocyte % 80.1 % N 38-83 Lymphocyte % 11.5 % Low 25-47 Monocyte % 7.3 % High 0-7 Eosinophil % 0.7 % N 0-6 Basophil % 0.4 % N 0-2 Nucleated Red Blood Cells % 0.1 Laboratory test 05/07/2017 [facility] Lactic Acid 1.8 mmol/L N 0.5-2.0 [address] [place] [address] [phone] Urine Culture And 05/07/2017 [facility] Urine SEE RESULT [address] [place] [address] [phone] Urinalysis Profile 05/07/2017 [facility] Urine Color Straw [address] [place] [address] [phone] Urine Appearance Clear Urine Specific [place] 1.004 Low 1.010-1.030 Urine pH 6.0 N 5-9 Urine Urobilinogen Negative Negative Urine Ketones Negative Negative Urine Protein Negative Negative Urine Leukocytes Negative Negative Urine Blood 1+ Abnormal Negative Urine Nitrite Negative Negative Urine Bilirubin Negative Negative Urine Glucose Negative Negative Urine White Blood Cell Trace(0-5/hpf) Absent Urine Red Blood Cell 1+(3-5/hpf) Abnormal Absent Urine Bacteria Absent Absent Urine Squamous Epithelial Cell Present Abnormal Absent Urine Amorphous Crystals Present Abnormal Absent CBC Auto Diff 12/24/2016 [facility] White Blood 4.2 10^3/uL N 3.5-10.[address] [place] [address] [phone] Red Blood Count 4.78 10^6/uL N 4.0-5.4 Hemoglobin 14.3 g/dL N 12.0-16.0 Hematocrit 44 % N 35-47 Mean Corpuscular Volume 92 fL N 80-97 Mean Corpuscular Hemoglobin 30 pg N 27-31 Mean Corpuscular HGB Conc 33 g/dL N 31-36 Red Cell Distribution Width 14 % N 10.5-15 Platelet Count 193 10^3/uL N 150-450 Mean Platelet Volume 9 um3 N 7.4-10.4 Abs Neutrophils 2.3 10^3/uL N 1.5-7.7 Abs Lymphocytes 1.3 10^3/uL N 1.0-4.8 Abs Monocytes 0.5 10^3/uL N 0-0.8 Abs Eosinophils 0.1 10^3/uL N 0-0.6 Abs Basophils 0 10^3/uL N 0-0.2 Abs Nucleated RBC 0 10^3/uL Granulocyte % 54.1 % N 38-83 Lymphocyte % 30.9 % N 25-47 Monocyte % 12.3 % High 1-9 Eosinophil % 1.9 % N 0-6 Basophil % 0.8 % N 0-2 Nucleated Red Blood Cells % 0.1 Comp Metabolic Panel 12/24/2016 [facility] Sodium 141 mmol/L N 133-[address] [place] [address] [phone] Potassium 4.7 mmol/L N 3.5-5.0 Chloride 106 mmol/L N 101-111 Co2 Carbon Dioxide 31 mmol/L N 22-32 Anion Gap 4 mmol/L N 2-11 Glucose 97 mg/dL N 70-100 Blood Urea Nitrogen 12 mg/dL N 6-24 Creatinine 1.01 mg/dL High 0.51-0.95 BUN/Creatinine Ratio 11.9 N 8-20 Calcium 10.1 mg/dL N 8.6-10.3 Total Protein 7.0 g/dL N 6.4-8.9 Albumin 4.3 g/dL N 3.2-5.2 Globulin 2.7 g/dL N 2-4 Albumin/Globulin Ratio 1.6 N 1-3 Total Bilirubin 0.60 mg/dL N 0.2-1.0 Alkaline Phosphatase 100 U/L N 34-104 Alt 116 U/L High 7-52 Ast 57 U/L High 13-39 Egfr Non- 52.5 >60 Egfr 67.5 >60 7 Laboratory test 12/24/2016 [facility] C Reactive 1.28 mg/L N < 5.00 [address] [place] [address] [phone] Erythrocyte Sed Rate 18 mm/Hr N 0-40 Urinalysis Profile 12/24/2016 [facility] Urine Color Straw [address] [place] [address] [phone] Urine Appearance Clear Urine Specific [place] 1.004 Low 1.010-1.030 Urine pH 5.0 N 5-9 Urine Urobilinogen Negative Negative Urine Ketones Negative Negative Urine Protein Negative Negative Urine Leukocytes Negative Negative Urine Blood 1+ Abnormal Negative Urine Nitrite Negative Negative Urine Bilirubin Negative Negative Urine Glucose Negative Negative Urine White Blood Cell Trace(0-5/hpf) Absent Urine Red Blood Cell Trace(0-2/hpf) Absent Urine Bacteria Absent Absent Urine Squamous Epithelial Cell Present Abnormal Absent Laboratory test 06/05/2016 [facility] Glucose 86 mg/dL N 70- 100 9 finding [address] [place] [address] [phone] Lipid Profile 06/05/2016 [facility] Triglycerides 135 mg/dL N 10 (Trig/Chol/HDL) [address] [place] [address] [phone] Cholesterol 199 mg/dL N 11 HDL Cholesterol 50.0 mg/dL N 12 LDL Cholesterol 122 mg/dL N 13 Protein 06/23/2015 [facility] Total 6.8 g/dL N 6.3 - Electrophoresis [address] [facility] Protein(Pep) 7.9 [place] [address] [phone] Albumin 3.6 g/dL N 3.4-4.7 Alpha-1 Globulin 0.2 g/dL N 0.1-0.3 Alpha-2 Globulin 1.0 g/dL N 0.6-1.0 Beta Globulin 0.9 g/dL N 0.7-1.2 Gamma Globulin 1.1 g/dL N 0.6-1.6 Albumin/Globulin Ratio 1.10 N Impression See Comment N 14 Laboratory test 06/23/2015 [facility] TSH (Thyroid 1.21 ?IU/mL N 0.34-5.60 finding 101 [facility] Stim [place]orm) [place] [address] [phone] Vitamin B12 103 pg/mL Low 180-914 15 Erythrocyte Sed Rate 12 mm/Hr N 0-40 Comp Metabolic Panel 06/23/2015 [facility] Sodium 140 mmol/L N 133-145 [address] [place] [address] [phone] Potassium 4.5 mmol/L N 3.5-5.0 Chloride 104 mmol/L N 101-111 Co2 Carbon Dioxide 31 mmol/L N 22-32 Anion Gap 5 mmol/L N 2-11 Glucose 94 mg/dL N 70-100 Blood Urea Nitrogen 16 mg/dL N 6-24 Creatinine 0.98 mg/dL High 0.51-0.95 BUN/Creatinine Ratio 16.3 N 8-20 Calcium 9.5 mg/dL N 8.6-10.3 Total Protein 6.6 g/dL N 6.4-8.9 Albumin 4.2 g/dL N 3.2-5.2 Globulin 2.4 g/dL N 2-4 Albumin/Globulin Ratio 1.8 N 1-3 Total Bilirubin 0.60 mg/dL N 0.2-1.0 Alkaline Phosphatase 66 U/L N 34-104 Alt 4 U/L Low 7-52 Ast 16 U/L N 13-39 Egfr Non- 54.6 N >60 Egfr 70.2 N >60 16 CBC Auto Diff 06/23/2015 [facility] White Blood 4.3 10^3/uL N 3.5-10.[address] [place] [address] [phone] Red Blood Count 4.54 10^6/uL N 4.0-5.4 Hemoglobin 13.4 g/dL N 12.0-16.0 Hematocrit 41 % N 35-47 Mean Corpuscular Volume 91 fL N 80-97 Mean Corpuscular Hemoglobin 29 pg N 27-31 Mean Corpuscular HGB Conc 33 g/dL N 31-36 Red Cell Distribution Width 15 % N 10.5-15 Platelet Count 165 10^3/uL N 150-450 Mean Platelet Volume 9 um3 N 7.4-10.4 Abs Neutrophils 2.5 10^3/uL N 1.5-7.7 Abs Lymphocytes 1.1 10^3/uL N 1.0-4.8 Abs Monocytes 0.5 10^3/uL N 0-0.8 Abs Eosinophils 0.1 10^3/uL N 0-0.6 Abs Basophils 0 10^3/uL N 0-0.2 Abs Nucleated RBC 0.01 10^3/uL N Granulocyte % 59.4 % N 38-83 Lymphocyte % 25.8 % N 25-47 Monocyte % 12.3 % High 1-9 Eosinophil % 1.8 % N 0-6 Basophil % 0.7 % N 0-2 Nucleated Red Blood Cells % 0.2 N 1 SEE RESULT BELOW Name: EZEQIUEL BASIHR : [address]: Serafin Katz III, MD Acct: [id number] Unit: [id number] AGE: 81 Location: [facility] Re05/13/17 SEX: F Status: REG REF SPEC: [id number] NGUYỄN: 05/13/17 [facility] DR: Serafin Katz III, MD REQ: [id number] RECD: 05/13/17 STATUS: COMP _ SOURCE: URINE SPDESC: ORDERED: Urine Culture Procedure Result Reported Site Urine Culture Final 05/15/17- 912 ML No Growth (<1,000 CFU/mL) * ML - Main Lab . END OF REPORT DEPARTMENT OF PATHOLOGY, [address] [place] [address] Rich Santos M.D. Director [facility] # [id number] 2 Because ethnic data is not always readily available, this report includes an eGFR for both -Americans and non- Americans. The National Kidney Disease Education Program (NKDEP) does not endorse the use of the MDRD equation for patients that are not between the ages of 18 and 70, are , have extremes of body size, muscle mass, or nutritional status, or are non- or non-. According to the National Kidney Foundation, irrespective of diagnosis, the stage of the disease is based on the level of kidney function: Stage Description GFR(mL/min/1.73 m(2)) 1 Kidney damage with normal or decreased GFR 90 2 Kidney damage with mild decrease in GFR 60-89 3 Moderate decrease in GFR 30-59 4 Severe decrease in GFR 15-29 5 Kidney failure <15 (or dialysis) 3 Acute inflammation: >10.00 4 Because ethnic data is not always readily available, this report includes an eGFR for both -Americans and non- Americans. The National Kidney Disease Education Program (NKDEP) does not endorse the use of the MDRD equation for patients that are not between the ages of 18 and 70, are , have extremes of body size, muscle mass, or nutritional status, or are non- or non-. According to the National Kidney Foundation, irrespective of diagnosis, the stage of the disease is based on the level of kidney function: Stage Description GFR(mL/min/1.73 m(2)) 1 Kidney damage with normal or decreased GFR 90 2 Kidney damage with mild decrease in GFR 60-89 3 Moderate decrease in GFR 30-59 4 Severe decrease in GFR 15-29 5 Kidney failure <15 (or dialysis) 5 RIS Severe Sepsis and Septic Shock Management Bundle Measure requires all lactic acids initially measuring >2.0 mmol/L be repeated. 6 SEE RESULT BELOW Name: EZEQUIEL BASHIR : [address]: Nick Phipps MD Acct: [id number] Unit: [id number] AGE: 81 Location: [address] Re05/07/17 SEX: F Status: ADM IN SPEC: [id number] NGUYỄN: 05/07/17 [facility] DR: Tiago Panda MD REQ: [id number] RECD: 05/07/17 STATUS: SHEILA THOMSON DR: Serafin Katz III, MD _ SOURCE: URINE SPDESC: ORDERED: Urine Culture Procedure Result Reported Site Urine Culture Final 05/09/17- 0825 ML No growth of clinically significant organisms * ML - Main Lab . END OF REPORT DEPARTMENT OF PATHOLOGY, [address] [place] [address] Rich Santos M.D. Director [facility] # [id number] 7 Because ethnic data is not always readily available, this report includes an eGFR for both -Americans and non- Americans. The National Kidney Disease Education Program (NKDEP) does not endorse the use of the MDRD equation for patients that are not between the ages of 18 and 70, are , have extremes of body size, muscle mass, or nutritional status, or are non- or non-. According to the National Kidney Foundation, irrespective of diagnosis, the stage of the disease is based on the level of kidney function: Stage Description GFR(mL/min/1.73 m(2)) 1 Kidney damage with normal or decreased GFR 90 2 Kidney damage with mild decrease in GFR 60-89 3 Moderate decrease in GFR 30-59 4 Severe decrease in GFR 15-29 5 Kidney failure <15 (or dialysis) 8 Acute inflammation: >10.00 9 FASTING 10 HOUR 10 Desirable <150 Borderline high 150-199 High 200-499 Very High >500 11 Desirable <200 Borderline high 200-239 High >239 12 Low <40 Desirable: 40-60 High: >60 13 Desirable: <100 mg/dL Near Optimal: 100-129 mg/dL Borderline High: 130-159 mg/dL High: 160-189 mg/dL Very High: >189 mg/dL 14 RESULT: No apparent monoclonal protein on serum electrophoresis. Test Performed by: [place] [address] [employer] Buyer: Mino Brothers II, M.D., Ph.D. 15 Normal Range 180 to 914 Indeterminate Range 145 to 180 Deficient Range <145 16 Because ethnic data is not always readily available, this report includes an eGFR for both -Americans and non- Americans. The National Kidney Disease Education Program (NKDEP) does not endorse the use of the MDRD equation for patients that are not between the ages of 18 and 70, are , have extremes of body size, muscle mass, or nutritional status, or are non- or non-. According to the National Kidney Foundation, irrespective of diagnosis, the stage of the disease is based on the level of kidney function: Stage Description GFR(mL/min/1.73 m(2)) 1 Kidney damage with normal or decreased GFR 90 2 Kidney damage with mild decrease in GFR 60-89 3 Moderate decrease in GFR 30-59 4 Severe decrease in GFR 15-29 5 Kidney failure <15 (or dialysis) Procedures Date Code Description Status 10/30/2017 10841 Holter Monitor Review (24 hr)dr hess & interp only Completed 10/22/2017 86056 ECG Monitor/Recording W/Visual Superimposition Scanning Completed 12/24/2016 29071 EKG Tracing & Interpretation Completed 09/01/2015 74293 Holter Monitor Review (24 hr)dr hess & kalia only Completed 08/30/2015 21407 ECG Monitor/Recording W/Visual Superimposition Scanning Completed 06/23/2015 33082 EKG Tracing & Interpretation Completed Encounters Type Date Location Provider Dx Diagnosis Office Visit 04/21/2018 Faustino Jovel Z01.810 Encounter for 2:20p Ellie Katz M.D. preprocedural Ruma cardiovascular od examination H25.9 Unspecified age-related cataract Office 10/14/2017 Faust[facility] Ellie Jovel Z02.89 Encounter for Visit 4:20p joshua Orellana M.D. administrative examinations R00.2 Palpitations Office 05/13/2017 Faustino [facility] Ellie Jovel K85.90 Acute Visit 3:40p Shun Katz M.D. 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 K85.90 Acute pancreatitis without necrosis or infection, unsp Office Visit 05/08/2017 9:48a [facility] Nick Phipps, R10.84 Generalized Assoc,marija CHASE abdominal pain Hospitalists F03.90 Unspecified dementia without behavioral disturbance K85.90 Acute pancreatitis without necrosis or infection, unsp Office Visit 05/08/2017 7:00a Surgical Kristi Ramiro R10.12 Left [facility] MD quadrant pain R94.5 Abnormal results of liver function studies Office Visit 05/07/2017 [facility] Ang R10.84 Generalized 9:40a Assoc,pc Nadia Doss abdominal pain Hospitalists F03.90 Unspecified dementia without behavioral disturbance K85.90 Acute pancreatitis without necrosis or infection, unsp Office Visit 12/24/2016 Faustino [facility] Ellie Jovel R07.9 Chest pain, 10:20a Shun Katz M.D. unspecified R10.12 Left upper quadrant pain Office Visit 10/02/2016 Faustino [facility] Ellie Jovel M54.5 Low back pain 1:00p Shun Katz M.D. Office Visit 06/12/2016 Faustino [facility] Ellie Jovel Z00.00 Encntr for 1:20p Shun Katz M.D. general adult medical exam w/o abnormal findings R51 Headache M54.5 Low back pain G47.9 Sleep disorder, unspecified Office Visit 10/31/2015 2:45p Pulmonology And Sleep Jen Nichole, R06.83 [facility] R40.0 Somnolence G47.9 Sleep disorder, unspecified Office Visit 08/18/2015 11:40a [facility] Internal Serafin Jovel R42 Dizziness and Medicine - Ccmob Michael Katz. giddiness R51 Headache R53.83 Other fatigue R00.2 Palpitations Office Visit 06/23/2015 3:00p [facility] Internal Alex Rk, R07.9 Chest pain, Medicine - Ccmob PHERESIS NURSE unspecified M54.5 Low back pain M54.16 Radiculopathy, lumbar region R42 Dizziness and giddiness Plan of Treatment 08/31/2018 - Serafin Katz M.D.L98.9 Disorder of the skin and subcutaneous tissue, unspecifiedComments:Recent change in a chronic facial skin lesion and a newly noted nonhealing sore type lesion on the Lleg possibly a skin cancer. Derm eval advisedReferral:Sana Elise MD, CgfusmkvehhF09.9 Chest pain, unspecifiedComments:New sx of episodic mid sternal area chest pains lasting hours off and on noted for months, but better lately. ? some change in breathing with sx, but pt denies any problems at present. Cannot excludea cardiac problem. Pt declines any involved eval, but urgent medical check when sx present suggested
[2018-09-01 14:39] VITALS: BP 153/72
--- NOTE | 2018-09-01 14:40 | UC ---
Shoulder Pain HPI - HPI Summary HPI Summary: 83 yo female presents accompanied by son. Pt does not speak Jamaican, thus the history and exam are translated by the son with her today. They tell me that around 1230 today pt was in bed and tried to get out when she rolled too far and fell out of bed. She landed on her right shoulder and screamed in pain. Son and business analytics manager went running to her and found her on the floor. Unsure if pt hit her head, but no LOC. Pt has been acting her baseline since time of fall. Holds right arm against abdomen due to right shoulder pain. Pt in pain with any movement of right shoulder. She uses a wheelchair or walker at baseline to ambulate. Denies headache, dizziness, vision changes, numbness, tingling, neck pain, vomiting. - History of Current Complaint Chief Complaint: UCUpperExtremity Stated Complaint: FELL SHOULDER/HEAD INJURY Time Seen by Provider: 09/01/18 14:40 Hx Obtained From: Family/Lithostripper Hx From Patient Unobtainable Due To: Other - Does not speak Jamaican Onset/Duration: Sudden Onset Timing: Constant Severity Initially: Severe Severity Currently: Severe Pain Intensity: 8 Pain Scale Used: 0-10 Numeric - Allergies/Home Medications Allergies/Adverse Reactions: Allergies Allergy/AdvReac Type Severity Reaction Status Date / Time No Known Allergies Allergy Verified 09/01/18 14:39 Home Medications: Home Medications Ibuprofen TAB* [Advil TAB*] 200 mg PO Q6H PRN 09/01/18 [History Confirmed ] PMH/Surg Hx/FS Hx/Imm Hx - Additional Past Medical History Additional PMH: Dementia - Surgical History Surgical History: Yes Surgery Procedure, Year, and Place: SOFT TISSUE MASS REMOVED FROM HEEL - Family History Known Family History: Positive: Unknown - Pt has dementia - Social History Occupation: Retired Lives: With Family Alcohol Use: None Substance Use Type: None Smoking Status (MU): Never Smoked Tobacco - Immunization History Most Recent Influenza Vaccination: 2017 Most Recent Pneumonia Vaccination: 2016 Review of Systems All Other Systems Reviewed And Are Negative: Yes Constitutional: Positive: Negative Skin: Positive: Negative Respiratory: Positive: Negative Cardiovascular: Positive: Negative Gastrointestinal: Positive: Negative Genitourinary: Positive: Negative Motor: Positive: Negative Neurovascular: Positive: Negative Musculoskeletal: Positive: Other: - Right shoulder pain Neurological: Positive: Negative Psychological: Positive: Negative Physical Exam - Summary Physical Exam Summary: GENERAL: NAD. WDWN. No pain distress. SKIN: No rashes, sores, ulcers, masses, lesions. HEENT: Head: AT/NC. No raccoon eyes or battles sign. Eyes: PERRLA. EOM intact. Ears: Hearing grossly normal. TMs intact, no bulging, erythema, or edema. No hemotympanum NECK: Supple. Nontender. FROM CHEST: CTAB. No r/r/w. No accessory muscle use. Breathing comfortably and in no distress. CV: RRR. Without m/r/g. Pulses intact. Brisk cap refill. ABDOMEN: Soft. NTTP. Bowel sounds present MSK: RIGHT SHOULDER: Holds right arm against abdomen. TTP about proximal humerus. Pain with any movement of shoulder. RIGHT ELBOW: FROM NTTP. Clavicle without tenderness, tenting, or step off. C spine FROM without tenderness. Thoracic and Lumbar spine: NTTP vetebrae. FROM B/L LEs. NEURO: Alert. Difficult to assess neuro given baseline dementia. Ability to follow 2-step directions and attention intact. CN: II: Peripheral engle intact. Vision normal. III, IV, : EOMI. No nystagmus. PERRLA. V: Sensations intact and symmetric. Opens mouth and clenches teeth. VII: No facial asymmetry. Forehead wrinkles. Grins, shuts eyes, frowns, puffs cheeks. Turns head against resistance. XII: No tongue deviation Dtyamo-hp-pwnf are intact. Normal speech. No facial drooping. Sensations intact C4-T1 B/L and L3-S1 B/L. PSYCH: Age appropriate behavior. Triage Information Reviewed: Yes Vital Signs: Initial Vital Signs Temp 98.0 F 09/01/18 14:34 Pulse 75 09/01/18 14:34 Resp 16 09/01/18 14:34 BP 153/72 09/01/18 14:34 Pulse Ox 93 09/01/18 14:34 Vital Signs Reviewed: Yes Shoulder Course/Dx - Course Course Of Treatment: XR shoulder: IMPRESSION: Fracture surgical neck of the right humerus. Degenerative changes of the glenohumeral joint is noted. XR clavicle: IMPRESSION: No fracture of the right clavicle is noted. XR elbow: IMPRESSION: No fracture of the right elbow is noted. CT head/c spine: IMPRESSION: Degenerative disc disease at C4-C5, C5-C6 and C6-C7. IMPRESSION: NO EVIDENCE FOR ACUTE INTRACRANIAL ABNORMALITY. Discussed results with pt and family. She is NV intact at this time. Pt placed in a sling and advised to rest, ice, and use the sling as much as possible. May take tylenol/ibuprofen as directed for discomfort. Advised to f/u with Orthopedics this week for further eval. - Differential Dx/Diagnosis Provider Diagnosis: Proximal humerus fracture Discharge - Sign-Out/Discharge Documenting (check all that apply): Patient Departure All imaging exams completed and their final reports reviewed: Yes - Discharge Plan Condition: Stable Disposition: HOME Patient Education Materials: Proximal Humerus Fracture (ED) Referrals: Serafin Katz MD [Primary Care Provider] - Todd Ramirez MD [Medical Doctor] - Additional Instructions: If you develop a fever, shortness of breath, chest pain, new or worsening symptoms - please call your PCP or go to the ED immediately. Rest, Ice, and use the sling at all times - may remove the sling to bathe/ shower. May take tylenol as directed for discomfort. Please follow up with Orthopedics at the address and number below. They will call you today or tomorrow with an appointment date and time. - Billing Disposition and Condition Condition: STABLE Disposition: Home
== END 2018-09-01 16:00 | disposition home or self-care (01) ==
LOC: UCEAST 14:24
DX: S42.211A Unspecified displaced fracture of surgical neck of right humerus, initial encounter for closed fracture (principal); W06.XXXA Fall from bed, initial encounter; Y93.84 Activity, sleeping; Y92.013 Bedroom of single-family (private) house as the place of occurrence of the external cause; Y99.8 Other external cause status; F03.90 Unspecified dementia, unspecified severity, without behavioral disturbance, psychotic disturbance, mood disturbance, and anxiety
CPT/HCPCS: 70450; 72125; 99212; G0463

== ENCOUNTER 2019-03-16 12:58 | Emergency (ER) | payer MEDICAID, OTHER ==
[2019-03-16] MEDS ORDERED: NS 0.9% 1000 ML** 1,000 ML IV ONE (12:59)
--- NOTE | 2019-03-16 13:03 | ED ---
Neurological HPI - HPI Summary HPI Summary: Patient is a 83 y/o F presenting to [facility] via EMS for right-sided weakness and aphasia. EMS states that the patient had a fall that occurred 03/15/19 around 0930. Patient developed slurred speech at around 1700 03/15/19, which has progressively worsened. At around 1215 today, 03/16/19, right-sided weakness was noted by adoption worker when the patient attempted to ambulate with walker. Last known well is 1700 03/15/19, patient is therefore not a TPA candidate but is a candidate for thrombectomy if needed. Hx of dementia reported. Jeanie lay called 1251 03/16/19 by EMS. EMS arrived at 1258, provider and Dr. Eduardo at bedside immediately to evaluate. Patient wheeled to CT at [address] Home medications and allergies are reviewed. Patient is a level 5 caveat secondary to dementia. - History of Current Complaint Stated Complaint: JEANIE MYERS Time Seen by Provider: 03/16/19 12:59 Hx Obtained From: EMS Hx From Patient Unobtainable Due To: Dementia Onset/Duration: Still Present Timing: Constant Current Severity: Severe Neurological Deficit Location: RUE, RLE Pain Scale Used: 0-10 Numeric Character: Motor Weakness, Impaired Speech Associated Signs and Symptoms: Positive: Weakness, Impaired Speech - Additional Pertinent History Primary Care Physician: LEONOR - Allergy/Home Medications Allergies/Adverse Reactions: Allergies Allergy/AdvReac Type Severity Reaction Status Date / Time No Known Allergies Allergy Verified 03/16/19 13:36 Home Medications: Home Medications NK [No Home Medications Reported] 03/16/19 [History Confirmed 03/16/19] PMH/Surg Hx/FS Hx/Imm Hx Endocrine/Hematology History: Denies: Hx Diabetes, Hx Thyroid Disease Cardiovascular History: Denies: Hx Congestive Heart Failure, Hx Deep Vein Thrombosis, Hx Hypertension , Hx Myocardial Infarction, Hx Pacemaker/ICD Respiratory History: Denies: Hx Asthma, Hx Chronic Obstructive Pulmonary Disease (COPD), Hx Lung Cancer, Hx Pneumonia, Hx Pulmonary Embolism GI History: Denies: Hx Gall Bladder Disease, Hx Gastrointestinal Bleed, Hx Ulcer, Hx Urosepsis History: Denies: Hx Kidney Stones, Hx Renal Disease Musculoskeletal History: Reports: Hx Back Problems Sensory History: Denies: Hx Contacts or Glasses, Hx Hearing Aid Opthamlomology History: Denies: Hx Contacts or Glasses Neurological History: Reports: Hx Dementia, Hx Headaches Denies: Hx Migraine, Hx Seizures, Hx Transient Ischemic Attacks (TIA) Psychiatric History: Denies: Hx Anxiety, Hx Depression, Hx Panic Disorder, Hx Schizophrenia, Hx Bipolar Disorder - Surgical History Surgery Procedure, Year, and Place: SOFT TISSUE MASS REMOVED FROM HEEL - Family History Known Family History: Positive: Unknown - Pt has dementia - Social History Alcohol Use: None Substance Use Type: Reports: None Smoking Status (MU): Never Smoked Tobacco Review of Systems - ROS Summary Review of Systems Summary: Patient is a level 5 caveat secondary to dementia. Neurological: Other - positive - impaired speech Positive: Weakness All Other Systems Reviewed And Are Negative: No - Comments Additional Review of Systems Comments: Patient is a level 5 caveat secondary to dementia. Physical Exam - Summary Physical Exam Summary: Constitutional: Well-developed, Well-nourished, Alert. (-) Distressed Skin: Warm, Dry HENT: Normocephalic; Atraumatic Eyes: Conjunctiva normal Neck: Musculoskeletal ROM normal neck. (-) JVD, (-) Stridor, (-) Tracheal deviation Cardio: Rhythm regular, rate normal, Heart sounds normal; Intact distal pulses; Radial pulses are 2+ and symmetric. (-) Murmur Pulmonary/Chest wall: Effort normal. (-) Respiratory distress, (-) Wheezes, (-) Rales Abd: Soft, (-) tenderness, (-) Distension, (-) Guarding, (-) Rebound Musculoskeletal: (-) Edema Lymph: (-) Cervical adenopathy Neuro: Level 5 caveat secondary to altered mental status, NIH of 27, see scale for breakdown. Psych: Mood and affect Normal Triage Information Reviewed: Yes Vital Signs Reviewed: Yes Procedures - Sedation Patient Received Moderate/Deep Sedation with Procedure: No Diagnostics - Laboratory Lab Statement: Any lab studies that have been ordered have been reviewed, and results considered in the medical decision making process. - CT BRAIN CT CT Interpretation Completed By: Radiologist Summary of CT Findings: IMPRESSION: 1. There is very subtle loss of the lay- white matter differentiation in the left MCA. territory. (MRI is more sensitive for infarct). 2. Questionable hyperdense proximal M2 segment of the left MCA (attention on follow-up. CTA). 3. Moderate cerebral volume. THIS REPORT WAS REVIEWED BY ED PHYSICIAN. HEAD/NECK CTA CT Interpretation Completed By: Radiologist Summary of CT Findings: IMPRESSION: 1. NO INTERNAL CAROTID ARTERY STENOSIS BY NASCET CRITERIA. 2. FUSIFORM NARROWING OF THE M2 SEGMENT OF THE LEFT MIDDLE CEREBRAL ARTERY SUGGESTIVE OF. INTRACRANIAL ATHEROSCLEROSIS, WITHOUT FOCAL HIGH -GRADE STENOSIS OR OCCLUSION. 3. CHRONIC SMALL VESSEL ISCHEMIC CHANGE. THIS REPORT WAS REVIEWED BY ED PHYSICIAN. - EKG 1332 Cardiac Rate: NL - rate of 75 BPM EKG Rhythm: Sinus Rhythm Summary of EKG Findings: EKG showed NSR with rate of 75 BPM, ST depression in V3 -V6, aVF, some ST elevation in aVR. No STEMI. ED physician has reviewed and interpreted this EKG. NIH Scale - NIH Scale Level of Consciousness: Responds to Minor Stimulation Ask Patient the Month and His/Her Age: Neither Correct/Aphasic Ask Pt to Open/Close Eyes and Child Protective Services Social Worker/Release Non-Paretic Hand: Neither Correctly Best Gaze (Only Horizontal Eye Movement): Forced Deviation Visual Field Testing: Complete Hemianopia Facial Paresis-Pt to Smile & Close Eyes or Grimace Symmetry: Partial Paralysis Motor Function - Right Arm: No Movement Motor Function - Left Arm: No Drift-Holds 10 Seconds Motor Function - Right Leg: No Effort Against [place] Motor Function - Left Leg: No Drift-Holds 10 Seconds Limb Ataxia-Must be out of Proportion to Weakness Present: Present in Two Limbs Sensory (Use Pinprick to Test Arms/Legs/Trunk/Face): Severe to Total Loss Best Language (Describe Picture, Name Items): Severe Aphasia Dysarthria (Read Several Words): Slurs Some Words Extinction and Inattention: Profound Stewart-Inattention Total Score: 27 Course/Dx - Course Course Of Treatment: Patient is here with right-sided deficits, aphasia, and neglect. Patient's last known well is 17[address] Patient had a CT scan of her brain which showed a hyperdense area in the left M2 segment. Patient had a substance CTA which showed a large vessel occlusion. Patient is out of the TPA window. However, patient is in the TPA window so she was transferred via helicopter to [facility] Provider Diagnoses: CVA (cerebral vascular accident), Large vessel stroke During the Visit The Following Alert/Code Occurred: Code Myers - Jeanie lay called 1251 03/16/19 by EMS. EMS arrived at 1258, provider and Dr. Eduardo at bedside immediately to evaluate. Patient wheeled to CT at [address] - Physician Notifications Discussed Care Of Patient With: Yany Eduardo Time Discussed With Above Provider: 12:58 Instructed by Provider To: Other - Dr. Eduardo at bedside to evaluate patient. 1320 - Dr. Eduardo reviewed CTA and believes patient has LVO. Patient to be transferred. Dr. Eduardo will handle transfer of patient. 1322 - Radiologist communicated Brain CT impression over the phone. 1338 - Patient's case was discussed with Dr. Baig from [facility], Dr. Baig accepts the patient for helicopter transfer. - Critical Care Time Critical Care Time: 30-74 min - 35 minutes Discharge ED - Sign-Out/Discharge Documenting (check all that apply): Patient Departure - transfer - Discharge Plan Condition: Critical Disposition: TRANS HIGHER LVL OF CARE FAC Referrals: Serafin Katz MD [Primary Care Provider] - - Billing Disposition and Condition Condition: CRITICAL Disposition: Trans Higher Lvl of Care Fac - Attestation Statements Document Initiated by Hossein: Yes Documenting Scribe: DANI LANDRY Provider For Whom Hossein is Documenting (Include Credential): NICOLE BURNS MD Scribe Attestation: DANI Lal, scribed for NICOLE BURNS MD on 03/16/19 at 1343. Scribe Documentation Reviewed: Yes Provider Attestation: The documentation as recorded by the DANI younger accurately reflects the service I personally performed and the decisions made by me, NICOLE BURNS MD Status of Scribe Document: Viewed
[2019-03-16] MEDS ORDERED: Iodixanol* (CONTRAST) 320 MG/ML 100 ML SDV IV ONE (13:37)
[2019-03-16 13:47] LABS: ABS Eosinophils 0.1 10^3/ul (0-0.6); ABS Lymphocytes 1.4 10^3/ul (1.0-4.8); ABS Monocytes 0.5 10^3/ul (0-0.8); ABS Neutrophils 1.4 10^3/ul (1.5-7.7); Hematocrit 39 % (35-47); Lymphocyte % 40.5 %; Mean Corpuscular HGB Conc 34 g/dL (31-36); Mean Corpuscular Hemoglobin 30 pg (27-31); Mean Corpuscular Volume 90 fL (80-97); Mean Platelet Volume 8.9 fL (7.4-10.4); Nucleated Red Blood Cells % 0.1; Platelet Count 157 10^3/uL (150-450); Red Blood Count 4.29 10^6 /uL (3.70-4.87); Red Cell Distribution Width 15 % (10-15); White Blood Count 3.4 10^3/uL (3.5-10.8)
[2019-03-16 13:55] LABS: Activated Partial Thrombo Time 31.7 seconds (26.0-38.0); INR 1.05 (0.82-1.09)
[2019-03-16 14:03] LABS: Troponin I 0.02 ng/mL (<0.03)
[2019-03-16 14:05] LABS: Albumin 3.6 g/dL (3.2-5.2); Albumin/Globulin Ratio 1.4 (1-3); Calcium 9.1 mg/dL (8.6-10.3); EGFR African American 54.4 (>60); Globulin 2.6 g/dL (2-4); HDL Cholesterol 43.2 mg/dL; Potassium 3.8 mmol/L (3.5-5.0); Total Bilirubin 0.7 mg/dL (0.2-1.0); Total Protein 6.2 g/dL (6.4-8.9)
[2019-03-16 14:27] VITALS: BP 190/74
--- NOTE | 2019-03-16 15:10 | PN ---
Subjective Date of Service: 03/16/19 Length of Stay: 1 Days Please note that this is a neurology consult note. Consultation was requested by Dr. Bedolla. Interval History: The patient is an 83-year-old right-handed Libyan speaking female who presented with sudden onset right-hemiparesis and aphasia. The history was obtained by the patient's daughter Elvia who was at bedside. The patient is aphasic and cannot provide history. Initially, when Elvia was not at bedside, a [place] biodiesel plant superintendent was contacted but not utilized as the patient was unable to communicate due to her acute neurological deficit. According to Elvia, the patient lives alone but has a caregiver throughout the day. The patient ambulate with a walker at baseline. The patient had a fall on 03/15/19 at 1030 AM. After the fall, the patient was able to recover and was reported to be at her baseline. The patient was able to go to her PCP yesterday to be evaluated for left knee pain after the fall. It was unclear if she lost consciousness or had a head injury after the fall yesterday. The patient was last talked to and seen normal on 03/15/19 at 1700. The patient was unable to sleep throughout the night due to pain in her knee after the fall. She finally slept at 1200. Elvia talked to the patient at 1030 AM today and noticed that the patient was slurring her speech. The patient's speech was heavy. Her SBP was initially 110's. Elvia received a call from the patient's caregiver around 1215 on 03/16/19 complaining that her mother had a sudden onset word finding difficulty. Subsequently, the patient developed right hemiparesis, right hemineglect, and right facial droop. Initial NIHSS: 27 at 1305. She is not a candidate for IV alteplase therapy since her last known well is outside the window. The patient was rushed to CT head where a subtle hyperdense MCA sign in the left M2 segment was seen. A CTA head and neck was obtained and showed severe stenosis (my preliminary read) of the proximal M2 segment of the left MCA with reduced distal flow. We gave her a bolus of IV fluids and her SBP increased to 190's mmHg. After the CT/CTA, the patient's mentation improved. The patient was then noted to follow command. She is moving the left arm. She still has significant aphasia. Please note that the patient's daughter was translating. The patient still had right facial droop(2), right hemiparesis arm (1) leg (1), dysarthria (2), and aphasia (2). NIHSS 1330: [address] Baig at 1327 who reviewed the images and accepted the patient. The patient was air flighted to . Review of Systems: Unable to be obtain as the patient is aphasic. Family History: Unchanged from Admission - No family history of stroke or seizures. Social History: Unchanged from Admission - She lives alone but has a caregiver throughout the day. She denied any tobacco or alcohol abuse. Past Medical History: Unchanged from Admission - Questionable dementia that's not diagnosed. Hypertension. Vitamin B12 deficiency. Objective Active Medications: Home medications: The patient does not take any medications. Vital Signs 03/16/19 03/16/19 03/16/19 13:19 13:27 13:30 Temperature 98.4 F Pulse Rate 96 73 Respiratory 18 22 Rate Blood Pressure 161/131 161/131 (mmHg) O2 Sat by Pulse 95 92 91 Oximetry 03/16/19 03/16/19 03/16/19 13:31 13:38 14:27 Temperature 98.1 F Pulse Rate 75 74 68 Respiratory 21 22 20 Rate Blood Pressure 190/74 190/74 (mmHg) O2 Sat by Pulse 92 94 92 Oximetry Intake and Output Last 24 Hours 03/14/19 03/15/19 03/16/19 03/17/19 06:59 06:59 06:59 06:59 Intake Total 1000 Balance 1000 Weight 127 lb 1.6 oz Intake: IV Fluids 1000 Oxygen Devices in Use Now: Nasal Cannula Neurology Exam: General: Ill appearing elderly female in no acute distress HEENT: Normocephelic/atraumatic, sclera anicteric, mucous membranes moist Neck: Supple Chest: Clear to auscultation bilaterally Cardiovascular: Regular rate and rhythm without murmurs, rubs, gallops Abdomen: Soft, non-tender/non-distended Extremities: No clubbing, cyanosis, or edema Neurological Findings: Awake, alert, and oriented to person but not place or time (in Libyan). Speech: moderate dysarthria and aphasia. Cranial Nerve: PERRL, EOM intact, VFF, no nystagmus, face symmetric bilaterally , facial sensation intact, hearing intact to finger rub bilaterally, palate elevates symmetrically, tongue midline, SCM and Trapezius s/s. She has a small laceration of the lateral surface of the tongue on the right. Motor: right hemiparesis where initially it was graded as 0-1/5 then improved to 4/5 on the right. Able to move the left spontaneously with good strength. Sensation: reduced to pinprick on the right. Deep Tendon Reflex: 1+ throughout, extensor plantar response on the right. Motor dysmetria on the right. Gait: n/a Result Diagrams: 03/16/19 13:27 03/16/19 13:27 Assessment/Plan Ms. Maura Rodriguez is an 83-year-old female who has history of untreated hypertension and possible dementia who presented to [facility] via EMS with sudden onset of aphasia and right hemiparesis. Initially, the patient had significant neurological deficits including right hemiparesis, right hemineglect, and aphasia. After the CT scanner and with IV fluids, her NIHSS improved from 27, to 17, then 8 before she was flown out to . The suspected diagnosis here is acute left MCA vascular territory ischemic infarction due to atherosclerosis and thrombus causing severe stenosis/near occlusion to the M2 segment of the MCA. Other differential diagnosis include post stroke seizure causing right sided Sea's paralysis. The patient was not given IV alteplase because the presumed last known well time was 03/15/2019 at 1700. She was having dysarthria when she woke up today. She may have stuttering symptoms given the left MCA disease. Dr. Wilks and Dr. Baig kindly accepted the patient for further evaluation. She will most likely require CTP and possible cerebral angiogram to evaluate the degree of stenosis. I discussed my diagnosis and treatment plan with Elvia. She agreed to proceed with the transfer to the [facility], a comprehensive stroke center , for higher level of care. I discussed the case with Dr. Baig and Dr. Wilks. I spent a total of 50 minutes of critical care time evaluating the patient, obtaining history, examining the patient, interpreting CT and CTA studies, and making transfer decisions with the team, including Dr. Bedolla.
== END 2019-03-16 14:27 | disposition short-term general hospital (02) ==
LOC: ED 12:58
DX: I63.511 Cerebral infarction due to unspecified occlusion or stenosis of right middle cerebral artery (principal); G81.91 Hemiplegia, unspecified affecting right dominant side; R29.727 NIHSS score 27; R47.81 Slurred speech; F03.90 Unspecified dementia, unspecified severity, without behavioral disturbance, psychotic disturbance, mood disturbance, and anxiety
CPT/HCPCS: 36415; 70450; 70496; 70498; 80053; 80061; 83605; 84484; 85025; 85610; 85730; 93005; 96360; 99285; Q9967